=== PATIENT | female | born 1975 | race Caucasian/White ===

== ENCOUNTER 2022-09-05 13:35 | Emergency (ER) | payer OTHER ==
[~2022-09-05] VITALS: Ht 152.4 cm; Wt 70.8 kg
[2022-09-05 13:47] VITALS: BP_SYST 129
== END 2022-09-05 14:21 | disposition left against medical advice (07) ==
LOC: SED 13:35
DX: F41.9 Anxiety disorder, unspecified (principal); Z53.21 Procedure and treatment not carried out due to patient leaving prior to being seen by health care provider
CPT/HCPCS: 93005; 99281